=== PATIENT | male | born 1990 | race Caucasian/White ===

== ENCOUNTER 2016-08-09 04:32 | Emergency (ER) | payer OTHER ==
[~2016-08-09] VITALS: Ht 170.2 cm; Wt 97.5 kg
--- NOTE | 2016-08-09 04:41 | ED INFLUENZA/URI COMPLAINT ---
History of Present Illness General Chief Complaint: General Adult Stated Complaint: "PER PT I HAVE COLD" Source: patient Exam Limitations: no limitations Vital Signs & Intake/Output Vital Signs & Intake/Output Vital Signs Date Time Temp Pulse Resp B/P Pulse O2 O2 Flow FiO2 Ox Delivery Rate 08/09 0514 97 Room Air 08/09 0444 79 18 151/85 97 Room Air Allergies Coded Allergies: No Known Drug Allergies (08/09/16) Reconcile Medications Amoxicillin/Potassium Clav (Augmentin 875-125 Tablet) 875 MG-125 MG TABLET 1 TAB PO BID BRONCHITIS Benzonatate (Tessalon Perle) 100 MG CAPSULE 1 CAP PO TID PRN COUGH Ibuprofen 800 MG TABLET 1 TAB PO TID PRN PAIN Triage Nurses Notes Reviewed? yes Onset: Gradual Duration: day(s): Timing: recent history Severity: moderate Prior Episodes/Possible Cause: occassional episodes Modifying Factors: Improves With: rest. Associated Symptoms: cough HPI: 26-year-old gentleman in prior good health presents with 7-8 days history of cough phlegm body aches. He states that he is otherwise well. He has no shortness of breath chest pain abdominal pain nausea vomiting diarrhea. 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 see below for history Surgical History Surgical History: none Psychosocial History Tobacco Use: Never used Family History Hx Contributory? No Review of Systems Review of Systems Constitutional: Reports: no symptoms. EENTM: Reports: no symptoms. Respiratory: Reports: no symptoms. Cardiovascular: Reports: no symptoms. GI: Reports: no symptoms. Genitourinary: Reports: no symptoms. Musculoskeletal: Reports: no symptoms. Skin: Reports: no symptoms. Neurological/Psychological: Reports: no symptoms. Hematologic/Endocrine: Reports: no symptoms. Immunologic/Allergic: Reports: no symptoms. All Other Systems: Reviewed and Negative Physical Exam Physical Exam General Appearance: well developed/nourished, no apparent distress Head: atraumatic, normal appearance Eyes: Bilateral: normal appearance. Ears, Nose, Throat: normal ENT inspection, moist mucous membrane Neck: normal inspection, supple, full range of motion Respiratory: normal breath sounds, chest non-tender, no respiratory distress, quiet respiration, lungs clear Cardiovascular: regular rate/rhythm Gastrointestinal: normal bowel sounds, soft, non-tender, no organomegaly Back: normal inspection, normal range of motion Extremities: normal inspection, normal capillary refill, normal range of motion Neurologic/Psych: no motor/sensory deficits, awake, alert, oriented x 3 Core Measures Severe Sepsis Present: No Septic Shock Present: No Progress Differential Diagnosis: otitis, pharyngitis, sinusitis, bronchitis Plan of Care: Orders Procedure Date/time Status THROAT CULTURE W/QUICK STREP 08/09 0453 Active Initial ED EKG: none Departure Departure Disposition: HOME OR SELF CARE Condition: Stable Clinical Impression Primary Impression: Bronchitis Referrals: ARELIS SOTELO MD (PCP/Family) Departure Forms: Customer Survey General Discharge Information Prescriptions: Current Visit Scripts Amoxicillin/Potassium Clav (Augmentin 875-125 Tablet) 1 TAB PO BID #20 TAB Benzonatate (Tessalon Perle) 1 CAP PO TID PRN COUGH #30 CAP Ibuprofen 1 TAB PO TID PRN PAIN #30 TAB Comments Patient is well-appearing with stable vitals. His history and exam is most consistent with bronchitis. I prescribed antibiotics and supportive measures. He will follow-up with his primary care doctor.
[2016-08-09 04:44] VITALS: BP 151/85
[2016-08-09] MEDS ORDERED: TESSALON PERLE100 M1 PO (05:05)
[2016-08-09] MEDS ORDERED: IBUPROFEN800 M1 PO (05:05)
[2016-08-09] MEDS ORDERED: AUGMENTIN 875-1 EACH PO (05:05)
== END 2016-08-09 05:17 ==
LOC: ERH 04:32
DX: J40 Bronchitis, not specified as acute or chronic (principal)

== ENCOUNTER 2017-11-30 12:31 | Emergency (ER) | payer OTHER ==
[~2017-11-30] VITALS: Ht 170.2 cm; Wt 97.5 kg
[~2017-11-30 12:31] MED LIST: AUGMENTIN 875-1 EACH PO; IBUPROFEN800 M1 PO; TESSALON PERLE100 M1 PO
--- NOTE | 2017-11-30 14:49 | ED GI/GU/ABDOMINAL COMPLAINT ---
History of Present Illness General Chief Complaint: Abdominal Pain/Flank Pain Stated Complaint: UPPER R ABDOMEN PAIN Source: patient Exam Limitations: no limitations Vital Signs & Intake/Output Vital Signs & Intake/Output Vital Signs Date Time Temp Pulse Resp B/P B/P Pulse O2 O2 Flow FiO2 Mean Ox Delivery Rate 11/30 1657 97.6 76 20 128/84 98 Room Air 11/30 1430 97.4 71 18 150/96 100 Room Air 11/30 1243 97.8 63 20 119/78 98 Room Air Allergies Coded Allergies: No Known Drug Allergies (08/09/16) Reconcile Medications Amoxicillin/Potassium Clav (Augmentin 875-125 Tablet) 875 MG-125 MG TABLET 1 TAB PO BID BRONCHITIS Benzonatate (Tessalon Perle) 100 MG CAPSULE 1 CAP PO TID PRN COUGH Ibuprofen 800 MG TABLET 1 TAB PO TID PRN PAIN Omeprazole 40 MG CAPSULE.DR 1 CAP PO DAILY ACID REFLUX Tramadol HCl 50 MG TABLET 1-2 TAB PO Q6P PRN PAIN Triage Note: RUQ PAIN X 4 DAYS. STATES PAIN WITH BREATHING AND MOVEMENT. PT STATES HE THOUGHT IT WAS GAS BUT PAIN REMAINS. PT SIB PHYSICIAN [facility] D/T PAIN, GUARDING AND TENDERNESS Triage Nurses Notes Reviewed? yes Onset: Abrupt Duration: day(s): (4), constant, continues in ED Timing: recent history Location: right upper quadrant Radiation: no radiation No Modifying Factors: none HPI: 27-year-old male comes into emergency room complaints of right upper abdominal pain has been going on for the past 4 days. Pain is sharp. Intermittent. Denies any belching or burping. Hurts with a deep breath. Denies any pain in his right lower abdomen. Denies any fever chills vomiting. Denies any changes in bowel movement or urinary symptoms. Denies any prior history of this pain. Denies any prior abdominal surgeries. (Chandra Chappell) Past History Travel History Traveled to [place] past 21 day No Medical History Any Pertinent Medical History? see below for history Gastrointestinal: GERD Surgical History Surgical History: none Psychosocial History What is your primary language Serbian Tobacco Use: Quit >30 days ago ETOH Use: denies use Illicit Drug Use: denies illicit drug use Family History Hx Contributory? No (Chandra Chappell) Review of Systems Review of Systems Constitutional: Reports: no symptoms. EENTM: Reports: no symptoms. Respiratory: Reports: no symptoms. Cardiovascular: Reports: no symptoms. GI: Reports: see HPI. Genitourinary: Reports: no symptoms. Musculoskeletal: Reports: no symptoms. Skin: Reports: no symptoms. Neurological/Psychological: Reports: no symptoms. Hematologic/Endocrine: Reports: no symptoms. Immunologic/Allergic: Reports: no symptoms. All Other Systems: Reviewed and Negative (Chandra Chappell) Physical Exam Physical Exam General Appearance: well developed/nourished, alert, awake Head: atraumatic Eyes: Bilateral: normal appearance. Ears, Nose, Throat, Mouth: hearing grossly normal, moist mucous membrane Neck: normal inspection Respiratory: normal breath sounds, no respiratory distress Cardiovascular: regular rate/rhythm Gastrointestinal: soft, tenderness (RUQ), NEGATIVE mCbURNEY'S POINT, no right lower quadrant tenderness, no guarding, no rebound tenderness Back: normal inspection Extremities: normal range of motion Neurologic/Psych: awake, alert, oriented x 3 Skin: intact, normal color Core Measures ACS in differential dx? No Sepsis Present: No Sepsis Focused Exam Completed? No (Chandra Chappell) Progress Differential Diagnosis: appendicitis, biliary colic, bowel obstruction, cholecystitis, diverticulitis, gastritis, hepatitis, pancreatitis, PUD/GERD, UTI /pyelo Plan of Care: Orders Procedure Date/time Status URINALYSIS 11/30 1449 Complete LIPASE 11/30 1449 Complete COMPREHENSIVE METABOLIC PANEL 11/30 1449 Complete CBC WITHOUT DIFFERENTIAL 11/30 1449 Complete AMYLASE 11/30 1449 Complete Laboratory Tests 11/30/17 1540: Anion Gap 11, Estimated GFR > 60, BUN/Creatinine Ratio 20.0, Glucose 102 H, Calcium 9.2, Total Bilirubin 0.6, AST 62 H, ALT 91 H, Alkaline Phosphatase 58, Total Protein 7.4, Albumin 4.1, Globulin 3.3, Albumin/Globulin Ratio 1.2, Amylase 63, Lipase 58, CBC w Diff NO MAN DIFF REQ, RBC 5.30, MCV 84.0, MCH 28.5, MCHC 34.0, RDW 12.9, MPV 7.7, Gran % 63.5, Lymphocytes % 28.0, Monocytes % 7.2, Eosinophils % 0.9, Basophils % 0.4, Absolute Granulocytes 3.9, Absolute Lymphocytes 1.7, Absolute Monocytes 0.4, Absolute Eosinophils 0.1, Absolute Basophils 0 11/30/17 1535: Urine Color YEL, Urine Clarity CLEAR, Urine pH 6.0, Ur Specific [place] <= 1.005 , Urine Protein NEG, Urine Ketones NEG, Urine Nitrite NEG, Urine Bilirubin NEG, Urine Urobilinogen 0.2, Ur Leukocyte Esterase NEG, Ur Microscopic EXAM NOT REQUIRED, Urine Hemoglobin NEG, Urine Glucose NEG Diagnostic Imaging: Viewed by Me: Ultrasound. Discussed w/RAD: Ultrasound. Radiology Impression: PATIENT: RCISTINA OLIVARES PRESENT AGE: 27 PATIENT ACCOUNT NO: [id number] : 89 LOCATION: [facility] ORDERING PHYSICIAN: Chandra YORK SERVICE DATE: 11/30/17 EXAM TYPE : US - US-LIMITED ABDOMEN EXAMINATION: ABDOMINAL ULTRASOUND LIMITED CLINICAL INFORMATION: Right upper quadrant pain. COMPARISON: 04/21/2016. TECHNIQUE: Real- time imaging of the right upper quadrant abdominal viscera. FINDINGS: PANCREAS: The visualized pancreatic head and body are normal in appearance. The remainder of the pancreas is obscured from visualization by the overlying bowel gas. LIVER : The liver is of normal size and echogenicity without focal lesions nor intrahepatic biliary ductal dilation. GALLBLADDER: Normal. The gallbladder is physiologically distended without evidence of stones, sludge, polyps, wall thickening or pericholecystic fluid. COMMON BILE DUCT: Normal in caliber measuring 0.4 cm in diameter. RIGHT KIDNEY: Normal. No hydronephrosis. No renal calculi or focal parenchymal lesions. The kidney measures 10.7 cm in maximum dimension. FREE FLUID: None. IMPRESSION: Unremarkable limited right upper quadrant ultrasound. DICTATED BY: Willy Dodge MD DATE/TIME DICTATED:11/30/171549 COUNTING MACHINE OPERATOR:SHANT DATE/TIME TRANSCRIBED:11/30/171549 CONFIDENTIAL, DO NOT COPY WITHOUT APPROPRIATE AUTHORIZATION. <Electronically signed in Other Vendor System> SIGNED BY: Willy Dodge MD 11/30/17 7320 Initial ED EKG: none Comments: 11/30/2017 5:38:09 PM - perc score. Low probability well's criteria. He has some pain when he takes a deep breath in the right side of his abdomen but does not actively have any shortness of breath. No suspicion for pulmonary embolism. Patient clinically looks well. He is in no apparent distress. He is resting comfortably on stretcher. He has right upper quadrant tenderness with no acute findings on ultrasound. AST/ALT slightly elevated and patient was told to follow-up with PCP. No right lower quadrant tenderness. No suspicion for appendicitis at this time. Follow-up with primary care doctor. Return if any other concerns worsening symptoms. Patient understands and agrees with plan of care. He was recommended follow-up with GI doctor. Started on PPI in case of a typical peptic ulcer versus gastritis presentation. (Chandra Chappell) Departure Departure Disposition: HOME OR SELF CARE Condition: Stable Clinical Impression Primary Impression: Abdominal pain Referrals: Chanda ROCA,Brady Gordon MD,Ruddy Guan (PCP/Family) Additional Instructions: Take omeprazole and tramadol for pain. Follow-up with evaluation assistant provided. Return if any fever chills increased pain or any other concerns. Please go over all results of today's visit with your primary care doctor. Contact your primary care doctor to let them know you were here in the emergency room. There may be nonspecific findings which may not be related to your visit today here in the emergency room but may require further evaluation and chronic monitoring by your primary care doctor. If you had a laceration today the chance of foreign body always remains. You should follow-up with your primary care doctor for recheck in 3-5 days for a wound check. If you had an x-ray done there is a chance that a fracture could have been missed on initial read and you should follow-up with your primary care doctor for repeat x-rays if symptoms persist. If your blood pressure was elevated here in the emergency room please have rechecked by [facility] primary care doctor within the next 48. If you were prescribed a narcotic here in the emergency room or any type of controlled substances you're not allowed to drive while taking this medication or operate any type of heavy machinery. Narcotics can make you feel lightheaded dizziness nausea and can cause constipation. You may need to picking table worker a stool softener. Thank you for choosing [facility] emergency room. Please return to the emergency room immediately if you have any other concerns worsening of symptoms. Departure Forms: Customer Survey General Discharge Information Prescriptions: Current Visit Scripts Tramadol HCl 1-2 TAB PO Q6P PRN PAIN #15 TAB Omeprazole 1 CAP PO DAILY #30 CAP (Chandra Chappell) PA/PODODERMATOLOGIST Co-Sign Statement Statement: ED Attending supervision documentation- [] I saw and evaluated the patient. I have also reviewed all the pertinent lab results and diagnostic results. I agree with the findings and the plan of care as documented in the PA's/PODODERMATOLOGIST's documentation. [x] I have reviewed the ED Record and agree with the PA's/PODODERMATOLOGIST's documentation. [] Additions or exceptions (if any) to the PAs/PODODERMATOLOGIST's note and plan are summarized below: [] (Joseluis Moseley DO)
--- NOTE | 2017-11-30 15:54 | ULTRASOUND REPORT ---
EXAMINATION: ABDOMINAL ULTRASOUND LIMITED CLINICAL INFORMATION: Right upper quadrant pain. COMPARISON: 04/21/2016. TECHNIQUE: Real-time imaging of the right upper quadrant abdominal viscera. FINDINGS: PANCREAS: The visualized pancreatic head and body are normal in appearance. The remainder of the pancreas is obscured from visualization by the overlying bowel gas. LIVER: The liver is of normal size and echogenicity without focal lesions nor intrahepatic biliary ductal dilation. GALLBLADDER: Normal. The gallbladder is physiologically distended without evidence of stones, sludge, polyps, wall thickening or pericholecystic fluid. COMMON BILE DUCT: Normal in caliber measuring 0.4 cm in diameter. RIGHT KIDNEY: Normal. No hydronephrosis. No renal calculi or focal parenchymal lesions. The kidney measures 10.7 cm in maximum dimension. FREE FLUID: None. IMPRESSION: Unremarkable limited right upper quadrant ultrasound.
[2017-11-30 16:11] LABS: ABSOLUTE BASOPHIL COUNT 0 /CUMM (0.0-0.2); ABSOLUTE EOSINOPHIL COUNT 0.1 /CUMM (0.0-0.7); ABSOLUTE GRANULOCYTE CT 3.9 /CUMM (1.4-6.5); ABSOLUTE LYMPH COUNT 1.7 /CUMM (1.2-3.4); ABSOLUTE MONOCYTE COUNT 0.4 /CUMM (0.10-0.60); BASOPHIL % 0.4 % (0.0-2.0); EOSINOPHIL % 0.9 % (0-5); GRANULOCYTE % 63.5 % (42.2-75.2); HEMATOCRIT 44.5 % (42-52); MEAN CORPUSCULAR HGB 28.5 PG (27.0-31.0); MEAN PLATELET VOLUME 7.7 FL (7.4-10.4); PLATELET COUNT 195 /CUMM (130-400); RBC DISTRIBUTION WIDTH 12.9 % (11.5-14.5); WHITE BLOOD CELL COUNT 6.1 /CUMM (4.8-10.8)
[2017-11-30] MEDS ORDERED: TRAMADOL HCL50 M1 PO (16:43)
[2017-11-30] MEDS ORDERED: OMEPRAZOLE40 M1 PO (16:43)
[2017-11-30 16:57] VITALS: BP 128/84
== END 2017-11-30 17:18 ==
LOC: ERH 12:31
PROVIDERS: Physician Assistant Medical
DX: R10.11 Right upper quadrant pain (principal)
CPT/HCPCS: 81003